=== PATIENT | male | born 1960 | race Hispanic/Latino ===

== ENCOUNTER 2019-10-20 11:47 | Emergency (ER) | payer MEDICARE ==
[2019-10-20] MEDS ORDERED: Lidocaine 1% (PF) 30 ML VIAL ONE (12:11)
--- NOTE | 2019-10-20 12:58 | RAD ---
LEFT RIBS THREE VIEWS: CHEST ONE VIEW: HISTORY: Fall. Chest injury. FINDINGS: No displaced rib fracture. No evidence of pneumothorax. The cardiac silhouette is unremarkable. Shallow inspiration accentuates pulmonary markings. IMPRESSION: Normal examination. POS: BST
== END 2019-10-20 13:05 | disposition home or self-care (01) ==
LOC: NAV ERS 11:47
DX: S01.312A Laceration without foreign body of left ear, initial encounter (principal); W06.XXXA Fall from bed, initial encounter
CPT/HCPCS: 12013; J2001

== ENCOUNTER 2019-11-01 14:01 | Emergency (ER) | payer MEDICARE | END 2019-11-01 14:49 | disposition home or self-care (01) | LOC: NAV ERS 14:01 | DX: S01.312D Laceration without foreign body of left ear, subsequent encounter (principal); W06.XXXD Fall from bed, subsequent encounter ==